=== PATIENT | male | born 1950 | race Caucasian/White ===

== ENCOUNTER 2018-04-02 08:32 | Observation (INO) | payer OTHER ==
[~2018-04-02] VITALS: Ht 177.8 cm; Wt 75.7 kg
[2018-04-02 09:07] VITALS: BP 128/78
[2018-04-02] MEDS ORDERED: CLOP75TA52 PO (09:19)
[2018-04-02] MEDS ORDERED: ROSU40TA PO (09:19)
[2018-04-02] MEDS ORDERED: RANI150T23 PO (09:19)
[2018-04-02] MEDS ORDERED: KRIL1CAP5 PO (09:19)
[2018-04-02] MEDS ORDERED: MULT-6 PO (09:19)
[2018-04-02] MEDS ORDERED: ASPI-650 PO (09:19)
[2018-04-02] MEDS ORDERED: GLUC100020 PO (09:19)
[2018-04-02] MEDS ORDERED: VIT1CAPS10 PO (09:19)
[2018-04-02] MEDS ORDERED: FENTANYL PF 100 MCG/2ML ONE (09:49)
[2018-04-02] MEDS ORDERED: MIDAZOLAM 1 MG/ML, 5ML ONE (09:49)
[2018-04-02] MEDS ORDERED: HEPARIN 1,000 UNITS/ML, 10ML ONE (09:50)
[2018-04-02] MEDS ORDERED: VERAPAMIL 2.5 MG/ML, 2ML ONE (09:50)
[2018-04-02] MEDS ORDERED: LIDOCAINE-MPF 1%, 5ML ONE (09:50)
[2018-04-02] MEDS ORDERED: TICAGRELOR 90 MG TABLET ONE (09:50)
[2018-04-02] MEDS ORDERED: BIVALIRUDIN 250 MG ONE (09:50)
[2018-04-02] MEDS ORDERED: NITROGLYCERIN 5 MG/ML, 10ML ONE (10:03)
[2018-04-02] MEDS: SODIUM CHLORIDE 0.9% 1,000 ML IV SCH ×2 (11:32→21:14)
[2018-04-02] MEDS ORDERED: TEMPLATE NON-FORMULARY MED. (Ranitidine Hcl** (Zantac**) 150 MG) PO SCH (12:00)
[2018-04-02 12:15] VITALS: BP 127/84
[2018-04-02] MEDS ORDERED: ZOLPIDEM 5MG TABLET PO PRN (18:30)
[2018-04-02] MEDS ORDERED: ATORVASTATIN 80 MG TABLET PO SCH (21:00)
[2018-04-02] MEDS ORDERED: FAMOTIDINE 40 MG TABLET PO SCH (21:00)
[2018-04-02] MEDS ORDERED: TEMPLATE NON-FORMULARY MED. (Rosuvastatin Calcium** (Crestor**) 40 MG) PO SCH (21:00)
[2018-04-02 21:30] VITALS: BP 120/69
[2018-04-03 03:00] VITALS: BP 107/70
[2018-04-03 04:26] LABS: ANION GAP 10 mmol/L (5-15); CALCIUM 8.5 mg/dL (8.5-10.1); CHLORIDE 109 mmol/L (98-107); CREATININE 0.62 mg/dL (0.7-1.3)
[2018-04-03 07:07] VITALS: BP 121/80
[2018-04-03] MEDS ORDERED: CLOPIDOGREL 75 MG TABLET PO SCH ×2 (09:00)
[2018-04-03] MEDS ORDERED: ASPIRIN 81 MG TABLET EC PO SCH (09:00)
== END 2018-04-03 10:30 | disposition home or self-care (01) ==
LOC: CACL 08:32 → ORIP 11:34 → 5SO 11:41 → DCLOUNGE 04-03 10:21
PROVIDERS: ADMIT Internal Medicine Cardiovascular Disease; ATTEND Internal Medicine Cardiovascular Disease
DX: I25.10 Atherosclerotic heart disease of native coronary artery without angina pectoris (principal); E78.5 Hyperlipidemia, unspecified; I25.2 Old myocardial infarction; N52.9 Male erectile dysfunction, unspecified; E78.00 Pure hypercholesterolemia, unspecified; K21.9 Gastro-esophageal reflux disease without esophagitis; Z82.49 Family history of ischemic heart disease and other diseases of the circulatory system; Z98.890 Other specified postprocedural states; Z89.029 Acquired absence of unspecified finger(s); Z95.5 Presence of coronary angioplasty implant and graft
CPT/HCPCS: 36415; 80048; 92920; 93458; 93571; 99156; 99157; C1725; C1769; C1887; C1894; G0378; J0583; J1644; J2250; J3010; Q9967; 92928